=== PATIENT | female | born 2000 | race African-American/Black ===

== ENCOUNTER 2024-05-30 06:22 | Day surgery (SDC) | payer MEDICAID ==
[2024-05-30 06:46] VITALS: BMI 24.0
[2024-05-30] MEDS ORDERED: hydrALAZINE 20 MG/ML VIAL SLOW IVP PRN (07:20)
[2024-05-30 07:36] LABS: Fetal Membranes Rupture No Membranes Rupture (No Rupture)
== END 2024-05-30 09:25 | disposition home or self-care (01) ==
LOC: CSHLD/OP 06:22
PROVIDERS: ATTEND Obstetrics & Gynecology
DX: Z03.71 Encounter for suspected problem with amniotic cavity and membrane ruled out (principal); O99.891 Other specified diseases and conditions complicating pregnancy; R10.9 Unspecified abdominal pain; Z3A.28 28 weeks gestation of pregnancy; Z79.899 Other long term (current) drug therapy
CPT/HCPCS: 36415; 76815; 80053; 81001; 84112; 85025; 86850; 86900; 86901; 87086; 87480; 87510; 87660; 99285

== ENCOUNTER 2024-07-07 21:21 | Inpatient (IN) | payer MEDICAID ==
[2024-07-07 21:34] VITALS: BMI 27.7
[2024-07-07] MEDS ORDERED: Carboprost 250 MCG/ML AMP IM PRN (22:10)
[2024-07-07] MEDS ORDERED: Misoprostol 200 MCG TAB PR PRN (22:10)
[2024-07-07] MEDS ORDERED: Diphenoxylate HCl/Atropine Tablet PO PRN (22:10)
[2024-07-07] MEDS ORDERED: Lidocaine 1% (PF) 30 ML VIAL SC PRN (22:10)
[2024-07-07] MEDS ORDERED: Tranexamic Acid 1,000 MG/10 ML VIAL IVP PRN (22:10)
[2024-07-07] MEDS ORDERED: Promethazine HCl 25 MG/ML VIAL IM PRN ×2 (22:10→23:16)
[2024-07-07] MEDS ORDERED: Oxytocin 30 units/NS 500 ML 500 ML IV SCH ×2 (22:15)
[2024-07-07] MEDS ORDERED: Labetalol HCl 100 MG/20 ML VIAL SLOW IVP PRN ×2 (22:18)
[2024-07-07] MEDS ORDERED: Calcium Gluc 4.6 MEQ/10 ML (100 MG/ML) SLOW IVP PRN (22:18)
[2024-07-07] MEDS ORDERED: Lorazepam 2 MG/ML VIAL SLOW IVP PRN (22:18)
[2024-07-07] MEDS: hydrALAZINE 20 MG/ML VIAL SLOW IVP PRN (22:25)
[2024-07-07] MEDS: Ondansetron PF 4 MG/2 ML Vial IVP SCH (22:25)
[2024-07-07] MEDS: fentaNYL 50 mcg/mL 1 mL Vial ONE (22:28)
[2024-07-07] MEDS: Magnesium Sulfate 20 gm/500 ml 20 GM/500 ML BAG ONE (22:30)
[2024-07-07 22:39] LABS: Amphetamine Not Detected (NotDetected); Barbiturates Screen Not Detected (NotDetected); Benzodiazepine Screen Not Detected (NotDetected); Cocaine Metabolite Screen Not Detected (NotDetected); Methadone Not Detected (NotDetected); Methamphetamine Not Detected (NotDetected); Opiate Screen Not Detected (NotDetected); Oxycodone Screen Not Detected (NotDetected); Phencyclidine (PCP) Not Detected (NotDetected); THC/Cannabinoid Screen Detected (NotDetected); Tricyclic Screen Not Detected (NotDetected)
[2024-07-07 22:45] LABS: Creatinine, Urine 110.38 mg/dL (47-110)
[2024-07-07 22:55] LABS: Bilirubin Neg (Negative); Blood, Urine Negative (Negative); Clarity Clear (Clear); Glucose, Urine (Dipstick) Normal (Negative); Ketone, Urine 15 mg/dL (Negative); Leukocyte Negative (Negative); Nitrite Negative (Negative); Protein, Urine (Dipstick) 15 mg/dl (Neg-Trace); Urobilinogen Normal mg/dL (Less than 2)
[2024-07-07 23:00] LABS: Hematocrit 28.4 % (34.9-44.5); Hemoglobin 9.9 g/dL (12.0-15.5); Mean Corpuscular HGB CONC 34.5 g/dL (32.0-36.0); Mean Corpuscular Volume 81.1 fL (81.6-98.3); Mean Platelet Volume 13.2 fL (7.4-10.4); Platelet Count 162 10x3/uL (150-450); RBC Distribution Width 13.6 % (11.5-14.5); Red Blood Cell (RBC) Count 3.54 10x6/uL (3.90-5.03); White Blood Cell (WBC) Count 6.7 10x3/uL (3.5-10.5)
[2024-07-07] MEDS ORDERED: Penicillin G Potassium 5 MILL.UNITS in Sodium Chloride 0.9% 100 ML IVPB SCH (23:00)
[2024-07-07 23:01] LABS: ALT (SGPT) 8 U/L (8-55); AST (SGOT) 18 U/L (5-34); Alkaline Phosphatase 160 U/L (40-110); Anion Gap 15 mmol/L (10-20); BUN (Urea Nitrogen) 7 mg/dL (7.0-18.7); Bilirubin, Total 1.1 mg/dL (0.2-1.2); Calc. Creatinine Clearance 103 mL/min (70-130); Calcium 8.8 mg/dL (7.8-10.44); Carbon Dioxide 16 mmol/L (22-29); Chloride 108 mmol/L (98-107); Estimated GFR 97; Globulin 3.9 g/dL (2.4-3.5); Glucose 72 mg/dL (70-105); Potassium 3.6 mmol/L (3.5-5.1); Protein, Total 6.9 g/dL (6.0-8.3); Sodium 135 mmol/L (136-145)
[2024-07-07] MEDS ORDERED: Naloxone HCl 0.4 mg/ml Vial IVP PRN ×2 (23:16)
[2024-07-07] MEDS ORDERED: Acetaminophen 325 MG TAB PO PRN (23:16)
[2024-07-07] MEDS ORDERED: Lactated Ringer's 500 ML IV PRN (23:16)
[2024-07-07] MEDS ORDERED: Moisturizing Cream (Eucerin) 113 GM JAR TOP PRN (23:16)
[2024-07-07] MEDS ORDERED: diphenhydrAMINE 50 MG/ML VIAL IVP PRN (23:16)
[2024-07-07] MEDS ORDERED: Ondansetron PF 4 MG/2 ML Vial IVP PRN (23:16)
[2024-07-07 23:19] LABS: HBsAg Index 0.22 S/CO (0-0.99); HIV (1/2) Antibody/Antigen Non-Reactive (NonReactive); HIV 1/2 INDEX 0.14 S/CO (<1.00); Hep B Surf Ag - L&D Non-Reactive S/CO (NonReactive)
[2024-07-07 23:20] LABS: Syphilis Antibody Nonreactive (Nonreactive); Syphilis Antibody Index 0.05 S/CO (<1.00 Non-Reactive)
[2024-07-07 23:29] LABS: Bacteria/HPF Rare-Few HPF (None Seen); CAUTI Indications for Culture Pregnancy; RBC/HPF 0-3 HPF (0-3); WBC/HPF 0-3 HPF (0-3)
[2024-07-07] MEDS ORDERED: Communication Order-Pharmacy FS SCH (23:30)
[2024-07-07] MEDS ORDERED: fentaNYL 2 mcg/Ropivacaine 0.2% Epidural 100 ML CADD EPIDURAL SCH (23:30)
[2024-07-07 23:31] LABS: Urine Culture Reflex Yes Yes
[2024-07-07] MEDS: fentaNYL/Ropivacaine Epidural 100 ML ONE (23:42)
[2024-07-07] MEDS: ePHEDrine Sulfate 50 MG/10 ML VIAL SLOW IVP PRN (23:56)
[2024-07-08 01:26] LABS: Influenza A by NAA Not Detected (NotDetected); Influenza B by NAA Not Detected (NotDetected); RSV by NAA Not Detected (NotDetected); SARS-CoV-2 NAA Rapid Test Not Detected (NotDetected)
[2024-07-08] MEDS ORDERED: Penicillin G 2.5 MILL.units 2.5 MILL.UNITS in Premix 1 BAG IVPB SCH (03:00)
[2024-07-08] MEDS: Magnesium Sulfate 20 gm/500 ml 20 GM/500 ML BAG IVPB SCH (06:31)
[2024-07-08] MEDS: Ibuprofen 800 MG TAB PO PRN (08:33)
[2024-07-08] MEDS ORDERED: ePHEDrine Sulfate 50 MG/10 ML VIAL ONE (09:00)
[2024-07-08] MEDS ORDERED: Bupivacaine/Epinephrine 0.25% 30 ML VIAL ONE (09:00)
[2024-07-09] MEDS: Ibuprofen 800 MG TAB PO PRN (05:28)
[2024-07-09] MEDS: hydrALAZINE 20 MG/ML VIAL SLOW IVP PRN (17:01)
[2024-07-09] MEDS: NIFEdipine XL 30 MG ER.TAB PO SCH (17:25)
[2024-07-09] MEDS: Labetalol HCl 100 MG TAB PO SCH (17:26)
[2024-07-10] MEDS: NIFEdipine XL 30 MG ER.TAB PO SCH (08:27)
[2024-07-10] MEDS: Docusate 100 MG CAP PO PRN (08:27)
[2024-07-10] MEDS ORDERED: Labetalol HCl 100 MG TAB PO SCH (09:00)
[2024-07-10] MEDS: Acetaminophen 500 MG TAB PO SCH (10:06)
[2024-07-10] MEDS: Lactated Ringer's 1,000 ML IV SCH (10:06)
[2024-07-10] MEDS: fentaNYL 50 mcg/mL 1 mL Vial SLOW IVP SCH (10:07)
[2024-07-11 12:05] VITALS: BP 134/85; TEMP 97.8
== END 2024-07-11 17:15 | disposition home or self-care (01) | DRG 806 ==
LOC: CSHLD/OP 21:21 → CSHLD 22:23 → CSHPP 07-09 02:30
PROVIDERS: ADMIT Obstetrics & Gynecology; ATTEND Obstetrics & Gynecology
PROC: 10E0XZZ Delivery of Products of Conception, External Approach (ICD-10-PCS; principal; 2024-07-08)
PROC: 10907ZC Drainage of Amniotic Fluid, Therapeutic from Products of Conception, Via Natural or Artificial Opening (ICD-10-PCS; 2024-07-08)
PROC: 3E0S3BZ Introduction of Anesthetic Agent into Epidural Space, Percutaneous Approach (ICD-10-PCS; 2024-07-08)
DX: O60.14X0 Preterm labor third trimester with preterm delivery third trimester, not applicable or unspecified (principal); O99.324 Drug use complicating childbirth; Z37.0 Single live birth; O14.14 Severe pre-eclampsia complicating childbirth; Z3A.34 34 weeks gestation of pregnancy; F12.90 Cannabis use, unspecified, uncomplicated; O76 Abnormality in fetal heart rate and rhythm complicating labor and delivery; O99.02 Anemia complicating childbirth; D50.9 Iron deficiency anemia, unspecified
CPT/HCPCS: 0241U; 36415; 51701; 51702; 80053; 80306; 81001; 82570; 84156; 85027; 86762; 86780; 86850; 86900; 86901; 87086; 87340; 87389; 87480; 87510; 87660; 88305; 99285; J0360; J2405; J3010; J3475